=== PATIENT | female | born 2000 | race Caucasian/White ===

== ENCOUNTER 2019-07-20 22:43 | Emergency (ER) | payer OTHER ==
--- NOTE | 2019-07-20 22:50 | ED ---
Influenza-Like Illness - HPI Summary HPI Summary: 19 yo female presents to [facility] [place] [facility] with fever. She tells me that for the last 2 days she has had a headache, sinus congestion, and sore throat. Today she bought a thermometer and took her temperature and found it to be 104F. She took advil and checked her temp 1 hour later and it was 103F. She called [facility] and they instructed her to come to the ED. Currently pt feels better after taking ibuprofen. She is eating, drinking, and tolerating po well. Denies cough, SOB, chest pain, abdominal pain, n/v, dysuria, dizziness . - History of Current Complaint Chief Complaint: EDFever Time Seen by Provider: 07/20/19 22:49 Hx Obtained From: Patient Onset/Duration: Sudden Onset - Allergy/Home Medications Allergies/Adverse Reactions: Allergies Allergy/AdvReac Type Severity Reaction Status Date / Time No Known Allergies Allergy Verified 07/20/19 22:47 PMH/Surg Hx/FS Hx/Imm Hx Endocrine/Hematology History: Denies: Hx Diabetes Cardiovascular History: Denies: Hx Congestive Heart Failure Respiratory History: Denies: Hx Asthma, Hx Chronic Obstructive Pulmonary Disease (COPD) Neurological History: Denies: Hx Headaches - Surgical History Surgical History: None - Immunization History Immunizations Up to Date: Yes Infectious Disease History: No Infectious Disease History: Denies: Traveled Outside the [place] in Last 30 Days - Social History Occupation: Student Lives: Dormitory/Roommates Substance Use Type: Reports: None Smoking Status (MU): Never Smoked Tobacco Review of Systems Positive: Fever Eyes: Negative Positive: Sore Throat, Nasal Discharge Cardiovascular: Negative Positive: Cough Gastrointestinal: Negative Genitourinary: Negative Musculoskeletal: Negative Skin: Negative Neurological: Negative Psychological: Normal All Other Systems Reviewed And Are Negative: No Physical Exam - Summary Physical Exam Summary: GENERAL: NAD. WDWN. No pain distress. SKIN: No rashes, sores, lesions, or open wounds. HEENT: Head: AT/NC Eyes: EOM intact. Conjunctiva clear without inflammation or discharge. Ears: Hearing grossly normal. TMs intact, no bulging, erythema, or edema. Nose: Nasal mucosa mildly swollen and erythematous with clear discharge. TTP maxillary sinus. Positive post nasal drip Throat: Posterior oropharynx with mild erythema. No exudates or tonsillar enlargement. Uvula midline. NECK: Supple. Mild tonsillar b/l LAD. CHEST: CTAB. No r/r/w. No accessory muscle use. Breathing comfortably and in no distress. CV: RRR. Pulses intact. Abdomen: SOFT AND NTTP. No CVA TTP NEURO: Alert. PSYCH: Age appropriate behavior. Triage Information Reviewed: Yes Vital Signs On Initial Exam: Initial Vitals Temp Pulse Resp BP Pulse Ox 99.3 F 105 16 112/76 95 07/20/19 22:45 07/20/19 22:45 07/20/19 22:45 07/20/19 22:45 07/20/19 22:45 Vital Signs Reviewed: Yes Procedures - Sedation Patient Received Moderate/Deep Sedation with Procedure: No Diagnostics - Vital Signs Vital Signs Temp Pulse Resp BP Pulse Ox 07/20/19 22:45 99.3 F 105 16 112/76 95 - Laboratory Lab Results: Laboratory Tests 07/20/19 07/20/19 07/20/19 23:15 23:15 23:25 Urine Color Yellow Urine Appearance Clear Urine pH 8.0 Ur Specific [place] 1.011 Urine Protein Negative Urine Ketones Trace A Urine Blood 1+ A Urine Nitrate Negative Urine Bilirubin Negative Urine Urobilinogen Negative Ur Leukocyte Esterase 1+ A Urine WBC (Auto) Trace(0-5/hpf) Urine RBC (Auto) Trace(0-2/hpf) Ur Squamous Epith Cells Present A Urine Bacteria Absent Urine Glucose Negative Influenza A (Rapid) Negative Influenza B (Rapid) Negative Group A Strep Rapid Negative Lab Statement: Any lab studies that have been ordered have been reviewed, and results considered in the medical decision making process. - Radiology CXR Radiology Interpretation Completed By: ED Physician Flu Symptom Course/Dx - Course Course Of Treatment: Strep and flu negative. UA with 1+ leuks, but pt is not having any urinary symptoms. Do not suspect UTI at this time, but will send urine for culture and treat as needed. Discussed with pt and she is feeling well now that fever is resolved - declines labwork or imaging at this time. Suspect viral illness. Advised to continue tylenol/ibuprofen for fever and discomfort and f/u with [facility] if symptoms persist more than 2-3 days. - Diagnoses Provider Diagnoses: Viral syndrome Discharge ED - Sign-Out/Discharge Documenting (check all that apply): Patient Departure - Discharge Plan Condition: Stable Disposition: HOME Patient Education Materials: Viral Syndrome (ED) Referrals: No Primary Care Phys,NOPCP [Primary Care Provider] - Additional Instructions: If you develop a fever, shortness of breath, chest pain, new or worsening symptoms - please call your PCP or go to the ED immediately. Your strep and flu test were negative today. Your urine showed some bacteria, but you are not having any symptoms. We have sent this to the lab for further testing and will call you with any changes in treatment. If your symptoms do not improve in 2-3 days, please be rechecked by [facility]. Continue tylenol and ibuprofen for fever and discomfort - Billing Disposition and Condition Condition: STABLE Disposition: Home
[2019-07-20 23:36] LABS: Rapid Strep Molecular Negative (Negative)
[2019-07-20 23:37] LABS: Urine Appearance Clear; Urine Bilirubin Negative (Negative); Urine Blood 1+ (Negative); Urine Color Yellow; Urine Glucose Negative (Negative); Urine Ketones Trace (Negative); Urine Nitrite Negative (Negative); Urine Protein Negative (Negative); Urine Specific Gravity 1.011 (1.010-1.030); Urine Urobilinogen Negative (Negative)
[2019-07-20 23:42] LABS: Urine Bacteria Absent (Absent); Urine Red Blood Cell Trace(0-2/hpf) (Absent); Urine Squamous Epithelial Cell Present (Absent); Urine White Blood Cell Trace(0-5/hpf) (Absent)
[2019-07-20 23:44] LABS: Influenza A Molecular NEGATIVE (Negative); Influenza B Molecular NEGATIVE (Negative)
[2019-07-21] MEDS ORDERED: Acetaminophen TAB* 325 MG PO ONE (00:11)
[2019-07-21 00:38] VITALS: BP 102/62
== END 2019-07-21 00:27 | disposition home or self-care (01) ==
LOC: ED 22:43
DX: B34.9 Viral infection, unspecified (principal); R50.9 Fever, unspecified; J02.9 Acute pharyngitis, unspecified; R05 Cough
CPT/HCPCS: 81003; 81015; 87086; 87651; 99282